=== PATIENT | male | born 2005 | race Caucasian/White ===

== ENCOUNTER 2024-11-14 20:23 | Emergency (ER) | payer MEDICAID, SELFPAY ==
--- NOTE | 2024-11-14 20:43 | MHC.EDTECH ---
BELONGINGS IN LOCKER 2
[2024-11-14 20:45] VITALS: BMI 25.7
--- NOTE | 2024-11-14 20:50 | PC.NURSE ---
Pt asked if having any pain. Pt states I dont know Pt asked if he has any allergies. Pt states I dont know Pt refusing labs Plan of care ongoing.
--- NOTE | 2024-11-14 20:58 | PC.NURSE ---
Pt refusing labs. Provider notified and aware. Plan of care ongoing.
--- NOTE | 2024-11-14 21:00 | PC.NURSE ---
Pt pacing to nurses station asking who can I speak to Pt scanning staff and the room. Pt speaking tangentially Pt tearful states I'm scared and losing my salvation Staff attempting to redirect pt Plan of care ongoing.
--- OUTSIDE RECORDS SUMMARY | 2024-11-14 21:06 | XMS_ITS | Clinical Summary ---
Author Organization [facility] Address [address] [place] [address] Phone Care Team Providers Care Literacy Coordinator Name Role Phone Physician, No Pcp Primary Care Provider Unavaila ble Allergies No known active allergies Medications No known medications Active Problems No known active problems Medical History Medical History Date Comments Asthma Social History Tobacco Use Types Packs/Day Years Used Date Smoking Tobacco: Unknown Tobacco Cessation:Counseling Given: Not Answered Sex and Gender Information Value Date Recorded Sex Assigned at Not on file Legal Sex Male 8:57 PM EST Gender Identity Not on file Sexual Orientation Not on file Obstetrics History Last Filed Vital Signs Vital Sign Reading Time Taken Comments Blood Pressure 122/69 08/01/2024 4:43 PM EST Pulse 81 08/01/2024 4:43 PM EST Temperature 37.1 C (98.8 F) 08/01/2024 4:43 PM EST Respiratory Rate 16 08/01/2024 4:43 PM EST Oxygen Saturation 100% 08/01/2024 4:43 PM EST Inhaled Oxygen Concentration - - Weight 65.8 kg (145 lb) 08/01/2024 1:30 PM EST Height 170.2 cm (5' 7 ) 08/01/2024 1:30 PM EST Body Mass Index 22.71 08/01/2024 1:30 PM EST Plan of Treatment Health Maintenance Due Date Last Done Comments Pneumococcal Vaccine: Pediatrics (0 to 5 Years) and At-Risk Patients (6 to 64 Years) (1 of 1 - PPSV23) 2010 01/29/2005, 01/05/2005, 2004, Additional history exists Meningococcal B Vaccine (1 of 2 - Standard) 2020 Annual Well Child Visit (3-21 years old) 06/22/2023 Depression Screening 06/22/2023 HIV Screening 06/22/2023 Hepatitis C Screening 06/22/2023 Social Influencers of Health Screening 06/22/2023 COVID-19 Vaccine ( season) 2024 Influenza Vaccine (Season Ended) 2025 08/19/2021, 04/12/2020, 04/03/2018, Additional history exists DTaP,Tdap,and Td Vaccines (7 - Td or Tdap) 08/29/2032 08/29/2022, 04/28/2014, 01/29/2009, Additional history exists Hepatitis B Vaccines Completed 01/05/2005, 2004, 2004 HIB Vaccines Completed 01/01/2007, 08/27, 2004 IPV Vaccines Completed 01/29/2009, 12/26, 2004, Additional history exists MMR Vaccines Completed 01/29/2009, 06/14/2005 Varicella Vaccines Completed 01/29/2009, 11/07/2005 HPV Vaccines Completed 04/03/2018, 12/22/2016 Hepatitis A Vaccines Completed 04/03/2018, 12/23/19 Meningococcal ACWY Vaccine Completed 08/19/2021, RSV Immunization Patients Under 20 months Aged Out No longer eligible based on patient's age to complete this topic Care Teams Literacy Coordinator Relationship Specialty Start Date End Date Physician, No Pcp PCP - General 08/01/24
--- NOTE | 2024-11-14 21:09 | PC.NURSE ---
Pt out of room at nurses station speaking about prayer and orthodoxy. Plan of care ongoing.
--- NOTE | 2024-11-14 21:17 | PC.NURSE ---
Pt back in room, reading his bible. Plan of care ongoing.
--- NOTE | 2024-11-14 21:20 | PC.NURSE ---
Pt back at nurses station. Pt refusing to speak with female staff. Pt speaking about anabaptist with male staff. Plan of care ongoing.
--- NOTE | 2024-11-14 21:26 | ED_ITS ---
HPI - Psych General Chief Complaint: Psychiatric Symptoms Stated Complaint: crisis hx of psychosis no si hi Time Seen by Provider: 11/14/24 21:15 Source: patient Mode of arrival: ambulatory Limitations: no limitations History of Present Illness ED Provider: HPI Narrative: Patient's history of PTSD, anxiety and psychosis started on olanzapine 5 mg since yesterday comes here as behaving psychotically reading Bible when brought in with fixed mentation talking to himself limited history Related Data Allergies Allergy/AdvReac Type Severity Reaction Status Date / Time Unable to Assess Allergy Unverified 11/14/24 20:49 Review of Systems 2 Review of Systems: Yes Unobtainable due to mental condition PMFSH Social History Social History Advance Directives: Yes Advance Directives on File: Yes Advance Directives Date on File: 11/14/24 Physical Exam 2 Vital Signs: Vital Signs: Last Vital Signs Temp 98.7 F 11/15/24 14:11 Pulse 78 11/15/24 14:11 Resp 18 11/15/24 14:11 BP 123/74 11/15/24 14:11 Pulse Ox 98 11/15/24 14:11 O2 Del Method Room Air 11/15/24 14:11 BMI result Body Mass Index 25.7 Appearance: Alert. Anxious talking to himself limited exam Eyes: PERRLA, No Nystagmus ENT: Pharynx normal. Oral Mucosa moist Neck: Normal inspection. Neck supple. CVS: Normal heart rate and rhythm. Pulses normal. Respiratory: No respiratory distress. Equal air entry bilateral, no wheezing/rales/rhonchi Abdomen: Soft and nontender. Bowel sounds are present, no mass palpable, no CVA tenderness Skin: Skin warm and dry. Normal skin color. Normal skin turgor. Extremities: No lower extremity edema. No calf tenderness psych: Patient is holding the bipolar in his hand talking to himself very anxious Neuro: Oriented X 3. No motor deficit. No sensory deficit.No cerebellar signs , cranial nerves II-XII intact Course Reevaluation(s) Reevaluation #1: Rosario Mae NP 11/15/2024 15:34 Patient was evaluated by care team, parents has been involved in planning of care as well, feel at this time that he does not meet criteria for inpatient level of care. Mother who is his guardian is advocating for discharge at this time and patient is requesting to be discharged. Plan is in place for him to follow-up with and outpatient clinic tomorrow. Given strict return precautions. All questions answered care Time: 15:32 Medications Administered Discontinued Medications Generic Name Dose Route Start Last Admin Trade Name Travis PRN Reason Stop Dose Admin Lorazepam 2 mg 11/14/24 22:30 11/14/24 22:38 Lorazepam 1 Mg Tablet PO 11/14/24 22:31 2 mg ONCE ONE Administration Olanzapine 5 mg 11/14/24 21:31 11/14/24 21:37 Olanzapine 5 Mg Tablet PO 11/14/24 21:32 5 mg ONCE ONE Administration Medical Decision Making Medical Decision Making [facility] Narrative: Patient's anxiety, PTSD psychotic disorder on Zyprexa for last 2 days details not available at this time patient comes here in features of psychosis and very anxious patient received Ativan and Zyprexa will get care team evaluation Lab Data [facility] Lab Attestation statement: I reviewed the patient's lab results. 11/14/24 22:23 11/14/24 22:23 Labs: Lab Results 11/14/24 11/14/24 Range/Units 21:35 22:23 WBC 8.3 (4.8-10.8) X10*3/uL RBC 5.06 (4.60-5.80) X10*6/uL Hgb 15.2 (14.0-18.0) g/dl Hct 44.6 (42.0-52.0) % MCV 88.1 (80.0-98.0) fL MCH 30.0 (27.0-33.0) pg MCHC 34.1 (31.0-36.0) g/dl RDW 12.0 (11.0-16.0) % Plt Count 345 (160-400) X10*3/uL MPV 10.8 (9.4-12.4) fL Immature Gran % (Auto) 0.2 (0.0-0.4) % Neut % (Auto) 72.6 (45-73) % Lymph % (Auto) 16.6 L (20-40) % [place] % (Auto) 8.2 (2-11) % Eos % (Auto) 1.3 (0-4) % Baso % (Auto) 1.1 (0-2) % Lymph # (Auto) 1.4 (1.2-4.9) X10*3/uL [place] # (Auto) 0.7 (0.1-1.2) X10*3/uL Eos # (Auto) 0.1 (0.0-0.4) X10*3/uL Baso # (Auto) 0.1 (0.0-0.2) X10*3/uL Abs Immat Gran (auto) 0.02 (0.00-0.03) X10*3/uL Absolute Neuts (auto) 6.0 (2.0-8.3) x10*3/uL Absolute Nucleated RBC 0.000 (0.0-0.012) X10*3/uL Nucleated RBC % (auto) 0.0 (0.0-0.2) /100WBC Sodium 136 (135-145) mmol/L Potassium 4.0 (3.3-5.1) mmol/L Chloride 104 (96-108) mmol/L Carbon Dioxide 25 (22-29) mmol/L Anion Gap 11 L (12-20) BUN 15 (9-16) mg/dL Creatinine 1.02 (0.5-1.4) mg/dL Estim Creat Clear Calc 92.9 Estimated GFR > 60 Random Glucose 98 (60-115) mg/dL Calcium 10.2 (8.4-10.2) mg/dL Total Bilirubin 1.0 (0.0-1.0) mg/dL AST 17 (5-37) U/L ALT 55 H (0-40) U/L Alkaline Phosphatase 60 (39-117) U/L Total Protein 8.9 H (6.5-8.0) g/dL Albumin 5.7 H (3.5-5.0) g/dL Urine Color Yellow Urine Appearance Clear Urine pH 5.5 (5.0-9.0) Ur Specific [place] 1.010 (1.005-1.025) Urine Protein Negative (Neg-Trace) mg/dL Urine Glucose (UA) Negative (Negative) mg/dL Urine Ketones Negative (Negative) mg/dL Urine Blood Negative (Negative) Urine Nitrite Negative (Negative) Ur Leukocyte Esterase Negative (Negative) Salicylates < 5.0 L (15-30) mg/dL Urine Opiates Screen Not Detected (Not Detect) Ur Buprenorphine Scrn Not Detected (Not Detect) ng/mL Ur Oxycodone Screen Not Detected (Not Detect) ng/mL Urine Methadone Screen Not Detected (Not Detect) ng/mL Urine Fentanyl Screen Not Detected (Not Detect) Ur Barbiturates Screen Not Detected (Not Detect) Ur Phencyclidine Scrn Not Detected (Not Detect) Ur Amphetamines Screen Not Detected (Not Detect) U Benzodiazepines Scrn Not Detected (Not Detect) Urine Cocaine Screen Not Detected (Not Detect) U Marijuana (THC) Screen Not Detected (Not Detect) Ethyl Alcohol < 10 mg/dL Discharge Plan Discharge Clinical Impression: Acute psychosis, Bipolar disorder Patient Disposition: Home, Self-Care Instructions: Bipolar Disorder (ED) Additional Instructions: You were evaluated in the emergency department given family concerns for your behavior. You received medication while in the emergency department. Plan is in place for you to follow-up with [facility] tomorrow outpatient in their clinic. You are experiencing any new or worsening symptoms or concerns you should return back to emergency department for evaluation, this may include but is not limited to suicidal ideations, homicidal ideations, hallucinations, violent behaviors. You were seen in our Emergency Department today for treatment of a behavioral health issue. It is important after your visit that you follow up with either your behavioral health provider or a primary care doctor within 7 days.? If you have trouble finding a therapist you can reach out to [address] [phone] The National Suicide and Crisis Lifeline can be reached 7 days a week 24 hours a day.? Call 988 to speak with someone.? Return for any worsening symptoms or concerns such as thoughts of self harm or harm to others. Please call 911 if you feel your mental health is worsening.? Print Language: Australian
[2024-11-14] MEDS: OLANZapine 5 MG TABLET PO (21:37)
--- NOTE | 2024-11-14 21:38 | PC.NURSE ---
Pt requesting meds to help with sleep. Provider notified and aware. Pt medicated per mar. Pt hesitant to take meds but eventually took meds. Pt requested and given water x3. Pt tearful states I'm scared to Plan of care ongoing.
[2024-11-14 21:44] LABS: Appearance Urine Clear; Color Urine Yellow; Glucose Urine UA Negative (Negative); Leukocyte Esterase Urine Negative (Negative); Nitrite Urine Negative (Negative); PH 5.5 (5.0-9.0); Urine Blood Negative (Negative); Urine Ketones Negative (Negative); Urine Protein Negative (Neg-Trace)
[2024-11-14 21:58] LABS: Amphetamine Screen Urine Not Detected (Not Detect); Barbiturates, Urine Not Detected (Not Detect); Benzodiazepines Screen Urine Not Detected (Not Detect); Buprenorphine Scr Not Detected (Not Detect); Cannabinoid Screen Urine Not Detected (Not Detect); Cocaine Screen Urine Not Detected (Not Detect); Fentanyl, urine Not Detected (Not Detect); Methadone Screen, Urine Not Detected (Not Detect); Opiate Screen Urine Not Detected (Not Detect); Oxycodone Screen Urine Not Detected (Not Detect); Phencyclidine Screen Urine Not Detected (Not Detect)
--- NOTE | 2024-11-14 22:13 | PC.NURSE ---
Pts mother called and transferred to speak to pt. Plan of care ongoing.
--- NOTE | 2024-11-14 22:22 | PC.NURSE ---
Labs obtained. Pt tearful, states Im scared. I dont want this. What does this mean? I want to go to [facility], that's where my dad is Pt redirected back into room by male staff. Care team with patient. Plan of care ongoing.
[2024-11-14 22:27] LABS: MANUAL DIFF FLAG NO
[2024-11-14 22:29] LABS: Basophils Absolute Auto 0.1 X10*3/uL (0.0-0.2); Basophils Percent Auto 1.1 % (0-2); Eosinophils Absolute Auto 0.1 X10*3/uL (0.0-0.4); Eosinophils Percent Auto 1.3 % (0-4); Hematocrit 44.6 % (42.0-52.0); Hemoglobin 15.2 g/dl (14.0-18.0); Imm Gran Abs Auto 0.02 X10*3/uL (0.00-0.03); Imm Gran Pct Auto 0.2 % (0.0-0.4); Lymphocytes Absolute Auto 1.4 X10*3/uL (1.2-4.9); Lymphocytes Percent Auto 16.6 % (20-40); Mean Corpuscular HGB Conc 34.1 g/dl (31.0-36.0); Mean Corpuscular Volume 88.1 fL (80.0-98.0); Mean Platelet Volume 10.8 fL (9.4-12.4); Monocytes Absolute Auto 0.7 X10*3/uL (0.1-1.2); Monocytes Percent Auto 8.2 % (2-11); Neutrophils Percent Auto 72.6 % (45-73); Platelet Count 345 X10*3/uL (160-400); Red Blood Count 5.06 X10*6/uL (4.60-5.80); White Blood Count 8.3 X10*3/uL (4.8-10.8)
[2024-11-14] MEDS: LORazepam 1 MG TABLET 2 MG PO (22:38)
--- NOTE | 2024-11-14 22:45 | PC.NURSE ---
Pt yelling on the phone to mom stating I dont want to be here. I feel trapped Pt hung up phone, sitting on floor next to room. Pt tearful declining to take meds stating I dont want that blood. I just want to go to heaven with my dad and god. Who's with me and who's against me Pt redirected and agreeable to taking meds. Plan of care ongoing.
[2024-11-14 22:48] LABS: Alanine Aminotransferase 55 U/L (0-40); Albumin Level 5.7 g/dL (3.5-5.0); Alkaline Phosphatase 60 U/L (39-117); Anion Gap 11 (12-20); Aspartate Amino Transferase 17 U/L (5-37); Blood Urea Nitrogen 15 mg/dL (9-16); Calcium 10.2 mg/dL (8.4-10.2); Carbon Dioxide 25 mmol/L (22-29); Chloride 104 mmol/L (96-108); Creatinine Clr Calc Pharmacy 92.9; Estimated Glomerular Filt Rate > 60; Ethanol < 10 mg/dL; Glucose Random 98 mg/dL (60-115); Sodium 136 mmol/L (135-145); Total Protein 8.9 g/dL (6.5-8.0)
[2024-11-14 22:50] LABS: Salicylate < 5.0 mg/dL (15-30)
--- NOTE | 2024-11-14 22:59 | PC.NURSE ---
Pt back at the nurses station. Pt stating no one can take my salvation Pt redirected into room Plan of care ongoing.
--- NOTE | 2024-11-14 23:03 | PC.NURSE ---
care team with patient Plan of care ongoing.
--- NOTE | 2024-11-15 07:34 | PC.NURSE ---
pt sleeping in bed, respirations even and regular, skin color normal for ethnicity, pt in nad at this time.
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
[2024-11-15 14:11] VITALS: BP 123/74; PULSE 78; RESP 18; TEMP 37.1; O2SAT 98
--- NOTE | 2024-11-15 15:40 | PC.NURSE ---
Addendum entered by Marla Schreiber RN 11/15/24 15:46: pt escorted out the department accompanied with his mother by GINNY Whitehead Original Note: pt refusing discharge vital sign assessment, mother present at the bedside, pt provided with discharge instructions, d/c paperwork and all belongings. Pt refused to sign discharge paperwork. Pt sts verbal understanding of discharge instructions. Pt ambulatory independently w/ steady gait/balance, speaking clearly in full sentences. He is in NAD at this time.
[2024-11-15 15:43] VITALS: RESP 16
--- NOTE | 2024-11-16 13:06 | MHC.CARE ---
Pt has been referred to [facility] for additional supports.
--- NOTE | 2024-11-16 13:24 | MHC.CARE ---
Pt has been referred to [facility] for a follow up
== END 2024-11-15 15:56 | disposition home or self-care (01) ==
PROVIDERS: Emergency Provider Internal Medicine
DX: F31.89 Other bipolar disorder (principal); Z51.81 Encounter for therapeutic drug level monitoring; F41.9 Anxiety disorder, unspecified; Z79.899 Other long term (current) drug therapy
CPT/HCPCS: 36415; 80053; 80179; 80307; 81003; 85025; 99283; 99285; S9485

== ENCOUNTER 2024-11-15 22:52 | Emergency (ER) | payer OTHER, SELFPAY ==
[2024-11-15 23:05] VITALS: BP 158/80; PULSE 108; O2SAT 98
[2024-11-15 23:07] VITALS: BMI 25.4
--- OUTSIDE RECORDS SUMMARY | 2024-11-15 23:22 | XMS_ITS | Clinical Summary ---
Author Organization [facility] Address [address] [place] [address] Phone Care Team Providers Care Drop Wire Operator Name Role Phone Physician, No Pcp Primary [...] age to complete this topic Care Teams Drop Wire Operator Relationship Specialty Start Date End Date Physician, No Pcp PCP - General 08/01/24
[2024-11-15] MEDS: LORazepam 1 MG TABLET 2 MG PO (23:44)
[2024-11-15] MEDS: OLANZapine 10 MG TABLET PO (23:44)
--- NOTE | 2024-11-16 00:49 | PC.NURSE ---
Spoke with patient's mother with hospital director of medical staff services and discussed with her that visiting hours are 8am to 8pm. Mother understood and was going to come back later. Pt noted to be sleeping in room.
--- NOTE | 2024-11-16 01:03 | ED.PSYCH ---
HPI - Psych General Chief Complaint: Psychiatric Symptoms Stated Complaint: ams Time Seen by Provider: 11/15/24 22:59 Source: patient Mode of arrival: EMS Limitations: no limitations History of Present Illness ED Provider: HPI Narrative: Patient's anxiety PTSD been feeling more anxious was seen here yesterday and discharged home comes back within 7 hours of discharge saying that his mind is not stable he feels the need to sleep and is thinking too much, PD on the scene states that he was in the corner retching bipolar talking to himself little agitated with increased anxiety denies any SI or HI patient is on olanzapine for last 3 days no family history of schizophrenia Related Data Home Medications ?Medication ?Instructions ?Recorded ?Confirmed No Known Home Meds 11/16/24 11/16/24 Allergies Allergy/AdvReac Type Severity Reaction Status Date / Time Unable to Assess Allergy Verified 11/15/24 23:11 Review of Systems Review of Systems: Yes all other systems are reviewed and are negative [facility] Social History Social History Smoked in Last 30 Days: No Use of substances other than those prescribed or required for medical reasons: Yes Advance Directives: Yes Advance Directives on File: Yes Advance Directives Date on File: 11/14/24 Physical Exam Vital Signs: Vital Signs: Last Vital Signs Temp 97.6 F 11/16/24 08:27 Pulse 110 H 11/16/24 08:27 Resp 20 11/16/24 08:27 BP 116/76 11/16/24 08:27 Pulse Ox 96 11/16/24 08:27 O2 Del Method Room Air 11/16/24 08:27 BMI result Body Mass Index 25.4 Appearance: Alert. Oriented X3. No acute distress. Eyes: PERRLA, No Nystagmus ENT: Pharynx normal. Oral Mucosa moist Neck: Normal inspection. Neck supple. CVS: Normal heart rate and rhythm. Pulses normal. Respiratory: No respiratory distress. Equal air entry bilateral, no wheezing/rales/rhonchi Abdomen: Soft and nontender. Bowel sounds are present, no mass palpable, no CVA tenderness Skin: Skin warm and dry. Normal skin color. Normal skin turgor. Extremities: No lower extremity edema. No calf tenderness psych: Anxious with fixed thoughts patient's keep changing the topic denies any SI or HI denies any hallucination delusion Neuro: Oriented X 3. No motor deficit. No sensory deficit.No cerebellar signs , cranial nerves II-XII intact Course Reevaluation(s) Reevaluation #1: Time: 11:16 Date: 11/16/24 Provider: Tomas Aguilera DO Physician observation ended at ___[id number]__. Patient has been cleared for discharge by the CARE team. Will follow up as an outpatient. Medications Administered Generic Name Dose Route Start Last Admin Trade Name Freq PRN Reason Stop Dose Admin Lorazepam 2 mg 11/15/24 23:09 11/15/24 23:44 Lorazepam 1 Mg Tablet PO 2 mg ONCE PRN Administration Agitation, anxiety Olanzapine 10 mg 11/15/24 23:11/15/24 23:44 Olanzapine 10 Mg Tablet PO 10 mg ONCE PRN Administration Agitation, anxiety Medical Decision Making Medical Decision Making [facility] Narrative: Patient with increased anxiety psychotic features on olanzapine coming back again is not feeling better will consult care team for re-evaluation Discharge Plan Discharge Clinical Impression: Acute psychosis, Bipolar disorder Patient Disposition: Home, Self-Care Additional Instructions: You were seen in our Emergency Department today for treatment of a behavioral health issue. It is important after your visit that you follow up with either your behavioral health provider or a primary care doctor within 7 days.? If you have trouble finding a therapist you can reach out to [address] [phone] The National Suicide and Crisis Lifeline can be reached 7 days a week 24 hours a day.? Call 988 to speak with someone.? Return for any worsening symptoms or concerns such as thoughts of self harm or harm to others. Please call 911 if you feel your mental health is worsening.? Prescriptions: No Action No Known Home Meds Interventions: [place]-Suicide Risk Severity Scale Last Done: 11/15/24 23:49 Print Language: Frisian
[2024-11-16 07:16] VITALS: RESP 16
--- NOTE | 2024-11-16 07:19 | PC.NURSE ---
Assumed care of patient at 0645, patient appears to be in no apparent distress, sleeping, respirations even and unlabored. Continue plan of care for CARE team luis m
[2024-11-16 08:27] VITALS: BP 116/76; PULSE 110; RESP 20; TEMP 36.4; O2SAT 96
--- NOTE | 2024-11-16 08:49 | PC.NURSE ---
Patient refusing labs and urine sample at this time
[2024-11-16 11:30] VITALS: BP 116/76; PULSE 110; RESP 20; TEMP 36.4; O2SAT 96
--- NOTE | 2024-11-18 12:40 | MHC.CARE ---
[facility] and PHP referral complete
== END 2024-11-16 11:45 | disposition home or self-care (01) ==
PROVIDERS: Emergency Provider Internal Medicine; PCP Internal Medicine
DX: F31.5 Bipolar disorder, current episode depressed, severe, with psychotic features (principal); R45.1 Restlessness and agitation; F41.9 Anxiety disorder, unspecified; F43.10 Post-traumatic stress disorder, unspecified; Z79.899 Other long term (current) drug therapy
CPT/HCPCS: 99284; S9485

== ENCOUNTER 2025-02-16 13:05 | Inpatient (IN) | payer SELFPAY ==
[2025-02-16 13:20] VITALS: BP 146/95; BP 170/110; PULSE 108; PULSE 86; RESP 18; TEMP 36.9; O2SAT 98; O2SAT 99; BMI 25.0
--- NOTE | 2025-02-16 13:32 | ED_ITS ---
HPI - Psych General Chief Complaint: Psychiatric Symptoms Stated Complaint: paranoid,manic, delusion Time Seen by Provider: 02/16/25 13:17 Source: patient, family ( Mother) and EMS Mode of arrival: EMS Limitations: no limitations History of Present Illness ED Provider: DR. Bernal HPI Narrative: 19-year-old male history of to ED visit for anxiety brought in by ambulance under section 12 for evaluation of acute psychosis patient in the emergency department does not want to provide history keep saying I need something for anxiety to come me down, patient is not engaging in providing the history, history was obtained from mother who stated that patient with missed for the past 3 days and patient was found a [place] after taking a bus randomly, for the last 5 days it has been acting strange, decreased p.o. intake, patient has been acting erratic, with a short temper and impulsiveness. Patient was admitted to [facility] in the psych unit was diagnosed with schizoaffective / bipolar disorder. Patient currently is not taking no medication. Related Data Home Medications ?Medication ?Instructions ?Recorded ?Confirmed olanzapine 5 mg tablet 5 mg PO DAILY 02/16/2502/16 Allergies Allergy/AdvReac Type Severity Reaction Status Date / Time No Known Allergies Allergy Verified 02/16/25 16:22 Review of Systems 2 Review of Systems: Yes Unobtainable due to mental condition PMFSH Social History Social History Advance Directives: Yes Advance Directives on File: Yes Advance Directives Date on File: 11/14/24 Do you have a plan to hurt others: No Plan Physical Exam 2 Vital Signs: Vital Signs: Last Vital Signs Temp 98.5 F 02/16/25 13:20 Pulse 86 02/16/25 13:20 Resp 16 02/17/25 06:11 BP 146/95 H 02/16/25 13:20 Pulse Ox 99 02/16/25 13:20 O2 Del Method Room Air 02/16/25 13:20 BMI result Body Mass Index 25.0 Vital signs have been reviewed and appear to be correct. Blood pressure elevated. Heart rate normal. Respiratory rate normal. Temperature normal. Oxygen saturation normal. Appearance: Alert. Oriented X3. No acute distress. Head: Normal external exam. Normocephalic. Atraumatic. No Sam signs noted. No raccoon eyes noted Eyes: PERRLA. EOMI. Conjunctiva and sclera normal. Eyelids normal. ENT: TM's Normal. Pharynx normal. Uvula midline. Moist mucous membranes. No trismus noted. No drooling noted. No muffled voice noted. Neck: Normal inspection. Neck supple. FROM. No adenopathy. Thyroid Normal. No meningeal signs. No neck mass noted. CVS: Normal heart rate and rhythm. Heart sound normal. No murmurs noted. Pulses normal throughout. Respiratory: No respiratory distress. Painless inspiration. Breath sounds normal. No wheezes/rales/rhonchi noted. Chest nontender. No accessory muscle usage noted or decreased air movement noted. Abdomen: Soft and nontender. Bowel sounds normal in all 4 quadrants. No distention noted. No organomegaly noted. No visible injury noted. Back: No CVA tenderness. Full range of motion noted. Skin: Skin warm and dry. Normal skin color. Normal skin turgor. No rashes/lesions/lacerations noted. Extremities: No lower extremity edema. Extremities exhibit normal range of motion. Extremities nontender. Neuro: Mental status: Normal attention, orientation, memory, and affect. Cranial nerves: Pupils are equal, round and reactive to light, EOMI, visual langford are fall, face is symmetric, facial sensations are normal. Motor examination normal muscle tone, strength to 4 extremities. DTR are +2, planter's are flexor. Sensory exam; normal coordination, no ataxia, gait stable. Cerebellar exam: Bhlsoc-az-unti and nfxa-ia-[id number] is normal. Extrapyramidal system: No tremors, no rigidity with normal facial expressions. Pronator drift not present. Patient Orientation: Person, Place, Time and Situation, okay hygiene and grooming. Fair eye contact, attentive, no tics or tremors. Level of Consciousness: Awake, Appropriate and Alert Patient Behavior: Appropriate, Guarded, Cooperative and Anxious Mood Description: Constricted, Blunted and Apprehensive Affect Description: Constricted, Blunted and Apprehensive Patient Cognition Impaired: No Ability to Follow Directions: Excellent Speech Pattern: Clear, Appropriate and Spontaneous Speech, nonpressured, spontaneous with regular rate and rhythm, normal volume and prosody. No dysarthria. Memory Description: Intact, Immediate Intact and Short Term Intact Hallucinations: None Delusions: Not Present Thought Process: Intact Thought Content: positive for Intact, denies Suicidal Ideation and denies Homicidal Ideation. Depressive Symptoms: Not present. Judgement and Insight: Limited but adequate. Course Reevaluation(s) Reevaluation #1: 19-year-old male appeared to be an acute psychosis, will start medical clearance, start on physician observation. mild elevation of total bilirubin but patient has no jaundice, no symptoms, no nausea, no vomiting, no abdominal pain. await for UA. Time: 13:43 Reevaluation #2: Time: 06:03 Date: 02/17/25 Provider: Abida Monroe, DO Patient in physician observation for psychiatric evaluation.? No acute events reported overnight. No current complaints. VS stable.? Patient is in bed search status. Will continue to monitor. Reevaluation #3: Time: 13:06 Date: 02/17/25 Provider: Abida Monroe DO Physician observation ended at 107pm. Patient to be admitted as inpatient to psychiatry Medications Administered Generic Name Dose Route Start Last Admin Trade Name Freq PRN Reason Stop Dose Admin Olanzapine 5 mg 02/17/25 09:00 02/17/25 11:32 Olanzapine 5 Mg Tablet PO Not Given DAILY LEATHA Discontinued Medications Generic Name Dose Route Start Last Admin Trade Name Freq PRN Reason Stop Dose Admin Diphenhydramine HCl 50 mg 02/16/25 22:32 02/17/25 02:40 Diphenhydramine Hcl 25 Mg Capsule PO 02/16/25 22:33 Not Given ONCE ONE Lorazepam 2 mg 02/16/25 22:32 02/17/25 02:40 Lorazepam 1 Mg Tablet PO 02/16/25 22:33 Not Given ONCE ONE Medical Decision Making Differential Diagnosis Differential Diagnoses: The differential diagnosis associated with the presentation includes ( Medical clearance, acute psychosis, SI, HI,) Admission/Observation Consideration of admission/observation: Escalation of care including admission/observation considered Lab Data MDM Lab Attestation statement: I reviewed the patient's lab results. 02/16/25 13:49 02/16/25 13:49 Labs: Lab Results 02/16/25 Range/Units 13:49 WBC 9.8 (4.8-10.8) X10*3/uL RBC 4.71 (4.60-5.80) X10*6/uL Hgb 14.3 (14.0-18.0) g/dl Hct 40.1 L (42.0-52.0) % MCV 85.1 (80.0-98.0) fL MCH 30.4 (27.0-33.0) pg MCHC 35.7 (31.0-36.0) g/dl RDW 11.3 (11.0-16.0) % Plt Count 282 (160-400) X10*3/uL MPV 10.6 (9.4-12.4) fL Immature Gran % (Auto) 0.3 (0.0-0.4) % Neut % (Auto) 79.3 H (45-73) % Lymph % (Auto) 11.2 L (20-40) % [place] % (Auto) 8.1 (2-11) % Eos % (Auto) 0.7 (0-4) % Baso % (Auto) 0.4 (0-2) % Lymph # (Auto) 1.1 L (1.2-4.9) X10*3/uL [place] # (Auto) 0.8 (0.1-1.2) X10*3/uL Eos # (Auto) 0.1 (0.0-0.4) X10*3/uL Baso # (Auto) 0.0 (0.0-0.2) X10*3/uL Abs Immat Gran (auto) 0.03 (0.00-0.03) X10*3/uL Absolute Neuts (auto) 7.8 (2.0-8.3) x10*3/uL Absolute Nucleated RBC 0.000 (0.0-0.012) X10*3/uL Nucleated RBC % (auto) 0.0 (0.0-0.2) /100WBC Sodium 138 (135-145) mmol/L Potassium 4.2 (3.3-5.1) mmol/L Chloride 105 (96-108) mmol/L Carbon Dioxide 25 (22-29) mmol/L Anion Gap 12 (12-20) BUN 17 H (9-16) mg/dL Creatinine 1.00 (0.5-1.4) mg/dL Estim Creat Clear Calc 102.5 Estimated GFR > 60 Random Glucose 99 (60-115) mg/dL Calcium 10.2 (8.4-10.2) mg/dL Magnesium 2.1 (1.6-2.6) mg/dL Total Bilirubin 1.7 H (0.0-1.0) mg/dL AST 42 H (5-37) U/L ALT 27 (0-40) U/L Alkaline Phosphatase 60 (39-117) U/L Total Protein 8.3 H (6.5-8.0) g/dL Albumin 5.6 H (3.5-5.0) g/dL Salicylates < 5.0 L (15-30) mg/dL Acetaminophen < 3 (<30) mcg/mL Ethyl Alcohol 10 mg/dL Discharge Plan Discharge Clinical Impression: Acute psychosis Patient Disposition: Admitted As Inpatient Interventions: [place]-Suicide Risk Severity Scale Last Done: 02/16/25 14:36 Print Language: Argentine
[2025-02-16 13:52] LABS: MANUAL DIFF FLAG NO
[2025-02-16 13:54] LABS: Hematocrit 40.1 % (42.0-52.0); Hemoglobin 14.3 g/dl (14.0-18.0); Imm Gran Abs Auto 0.03 X10*3/uL (0.00-0.03); Imm Gran Pct Auto 0.3 % (0.0-0.4); Lymphocytes Absolute Auto 1.1 X10*3/uL (1.2-4.9); Mean Corpuscular HGB Conc 35.7 g/dl (31.0-36.0); Mean Corpuscular Hemoglobin 30.4 pg (27.0-33.0); Mean Corpuscular Volume 85.1 fL (80.0-98.0); NRBC Abs Auto 0.000 X10*3/uL (0.0-0.012); NRBC Pct Auto 0.0 /100WBC (0.0-0.2); Platelet Count 282 X10*3/uL (160-400); Red Blood Count 4.71 X10*6/uL (4.60-5.80); White Blood Count 9.8 X10*3/uL (4.8-10.8)
[2025-02-16 14:00] VITALS: RESP 18
[2025-02-16 14:08] LABS: Alanine Aminotransferase 27 U/L (0-40); Albumin Level 5.6 g/dL (3.5-5.0); Alkaline Phosphatase 60 U/L (39-117); Anion Gap 12 (12-20); Aspartate Amino Transferase 42 U/L (5-37); Blood Urea Nitrogen 17 mg/dL (9-16); Calcium 10.2 mg/dL (8.4-10.2); Carbon Dioxide 25 mmol/L (22-29); Chloride 105 mmol/L (96-108); Creatinine Clr Calc Pharmacy 102.5; Estimated Glomerular Filt Rate > 60; Magnesium 2.1 mg/dL (1.6-2.6); Potassium 4.2 mmol/L (3.3-5.1); Sodium 138 mmol/L (135-145); Total Protein 8.3 g/dL (6.5-8.0)
[2025-02-16 14:12] LABS: Acetaminophen LAB < 3 mcg/mL (<30); Salicylate < 5.0 mg/dL (15-30)
--- NOTE | 2025-02-16 15:11 | PC.NURSE ---
Pt is restless and paranoid of staff. His mother is present and attempts to assist with getting him changed and labs obtained. Pt is unable to answer questions appropriately and when told he needs to ask before showering, he goes and takes a shower 20 min. later not telling anyone. Pt had no soap, towels or a change of clothes.
--- NOTE | 2025-02-16 20:15 | PC.NURSE ---
pt trying to use the phone, unable to dial correctly. attempted to help with call, pt got agitated. went back to room.
--- NOTE | 2025-02-16 22:57 | PC.NURSE ---
pt requesting medication to help him sleep. MD aware. orders placed. pt took a shower. then was very hesitant and anxious about taking meds. pt refused at this time. pt overwhelmed when asked simple questions, do you want juice or water . will try again shortly.
--- NOTE | 2025-02-16 22:58 | MHC.EDTECH ---
pt has taken 4 showers since t/w has arrived on POD. pt re directable to an extent. agitated when approached with too many questions. rn aware.
--- NOTE | 2025-02-17 00:04 | PC.NURSE ---
pt asked to talk, this RN listened to pt talk for 30 minutes, very nonsensical speech. talking in circles about the bible and the lord. refusing to wear hospital bracelet, still refusing medications. becoming more manic
--- NOTE | 2025-02-17 01:37 | PC.NURSE ---
pt appears to be resting at this time
[2025-02-17 06:11] VITALS: RESP 16
--- NOTE | 2025-02-17 06:39 | PC.NURSE ---
pt awake at this time
--- NOTE | 2025-02-17 07:10 | PC.NURSE ---
Assumed care, report, received. Pt is awake and currently kneeling at his bedside praying. he is awaiting breakfast/
--- NOTE | 2025-02-17 09:16 | PC.NURSE ---
Attempt to obtain EKG X2 Pt continues to refuse and is very paranoid and religiously preoccupied.
--- NOTE | 2025-02-17 09:35 | PHA.MEDREC ---
Addendum entered by Lang Georges PharmD 02/17/25 09:40: reviewed Original Note: Pharmacy Consult ? Medication Reconciliation Pharmacy has reviewed the medication reconciliation done by nursing. Claims match med list.
--- NOTE | 2025-02-17 10:08 | PC.NURSE ---
30 min attempt made to get patient to take his Zyprexia, Pt is very paranoid, he is unable to tell me why he is here and what he thinks is happening.
--- NOTE | 2025-02-17 12:53 | PC.NURSE ---
Pts mother arrives for a visit, he remains in his room and gets very angry after 15 min, he begins yelling in the room, this food writer checks in and sets guidelines to his mother. 10 min later his mother is asked to leave due to him getting more upset and he began having impulsive physical behavior, nothing aggressive.
[2025-02-17 15:29] VITALS: BP 146/88; PULSE 64; RESP 16; O2SAT 98
--- NOTE | 2025-02-17 18:58 | PC.ADMIT ---
Addendum entered by Anita Angel RN 02/17/25 20:01: Chiquita's mom and brother called and due to not having any MICAELA signed, tw just listened. Per them, they are his HCP, they will have the court papers tomorrow. They are pursuing guardianship as he is cognitively impaired. We are the ones who take care of him. We dont want him diagnosed with something he cant ever get rid of. Mom states she is a psychology nurse [place] . They state his medications arent right. We will get the records from [facility]. This nurse called [facility] pharmacy but he is not a patient there. Mom is coming for a visit again tomorrow at 1000. Addendum entered by Anita Angel RN 02/17/25 18:59: He refused vitals, height and weight. Original Note: Chas Angel arrived via wheelchair from [facility] [place]. He is alert, awake and apprehensive. He required much support and encouragement to walk to his room with tw. He appears stated age, he is malodorous and wearing hospital johnnies. He was very resistant to skin/safety check. ?I don't want anyone touching me, at all.? He very quickly changed into a new set of clothes with minimal visibility permitted. He was evaluated in the community by N for decompensation, not sleeping, and taking off to [place] and missing for 2 days. He had an IPLOC at [facility] in September 2024. He was discharged on medications but has long since stopped taking them. He appears very internally preoccupied but cannot answer any questions directly, not even ?how do you say your name?, or ?do you want food or drink??. He is near constantly looking in his personal bible, running his finger along the page as if he is searching for the exact phrase that applies. But it is unclear if he is actually reading the words. He is tangential and having flight of ideas. ?I don't want things to get confused.?, ?God told me things, I have to follow the one true God and the one true Word?, ?The evil one gets in the way?. He is restless, ?I just need to talk to my mom, she said she was coming. I don't mean it like that, she looks after me?, ?I had bad things happen to me but I don't want to say. He will not answer any safety questions. Per crisis report, he doesn't have providers, doesn't drink, smoke or use any illicit substances. He is refusing everything under the guise of ?I don't want anyone touching me. giving me anything or bothering me in any way.? These statements were not said sequentially. He is on a 12b and 15 minute safety checks. His mom came for a visit, she was clear to say that both she and her other son Cruz are Chiquita?s health care proxy. We do not have any paperwork to reflect this. This nurse provided bottled water and fruit even though he didn't ask for anything.
--- NOTE | 2025-02-18 08:28 | HO.PM.IMCN ---
History of Present Illness Data of Consult Service Date: 02/18/25 Primary Care Provider: DO TAJ Montaño Reason for consult: Medical management 19-year-old male with a past medical history of unspecified intellectual disability, anxiety brought to the ED via EMS for acute psychosis. Per reports patient was missing for 3 days and was found in [place] after randomly taking a bus there, acting erratic with impulsiveness and short temper. Patient was admitted to [facility] in September 2024 and transferred to [facility]. In [place] he was started on Zyprexa 5 mg and was stabilized. He reportedly ran out of his medication. In the ED his workup revealed no leukocytosis no anemia. Mild elevation in his bilirubin, no evidence of kidney injury. Urinalysis not obtained for toxicology or infection. On exam he appears fearful, paranoid, does not want to answer any questions or let this creative writer examine him. Review of Systems Review of Systems: Declines to answer any questions PMFSH Social History Household Members: Family Housing: Apartment Patient Tobacco Use Status: Never used Tobacco Currently Displaying Signs/Symptoms of Drug Intoxication Withdrawal: No Advance Directives: Yes Advance Directives on File: Yes Advance Directives Date on File: 11/14/24 Do you have thoughts of harming others: None Do you have a plan to hurt others: No Plan Recently lost weight without trying: Yes How much weight loss: Unsure Poor oral hygiene: No service: No Sexual orientation: Straight/Heterosexual Meds Allergies Allergy/AdvReac Type Severity Reaction Status Date / Time No Known Allergies Allergy Verified 02/16/25 16:22 Active Medications: Current Medications Acetaminophen (Acetaminophen 325 Mg Tablet) 650 mg PO Q6H PRN PRN Reason: Headache/Pain, Scale 1-10 Al Hydroxide/Mg Hydroxide (Magnesium Hydrox/Alum Hydrox 30 Ml Oral.Susp) 30 ml PO Q6H PRN PRN Reason: Heartburn/Nausea Hydroxyzine HCl (Hydroxyzine Hcl 25 Mg Tablet) 25 mg PO Q6H PRN PRN Reason: mild anxiety Lorazepam (Lorazepam 1 Mg Tablet) 1 mg PO Q6H PRN PRN Reason: severe anxiety Magnesium Hydroxide (Milk Of Magnesia 30 Ml Oral.Susp) 30 ml PO DAILY PRN PRN Reason: Constipation Nicotine (Nicotine 21 Mg Patch.Td24) 21 mg TRANSDERMA DAILY PRN PRN Reason: smoking cessation Nicotine Polacrilex (Nicotine Polacrilex 2 Mg Gum) 4 mg BUCCAL Q2H PRN PRN Reason: Nicotine Cravings Olanzapine (Olanzapine 5 Mg Tablet) 5 mg PO DAILY LEATHA Last Admin: 02/17/25 11:32 Dose: Not Given Olanzapine (Olanzapine 5 Mg Tablet) 5 mg PO TID PRN PRN Reason: agitation Trazodone HCl (Trazodone Hcl 50 Mg Tablet) 50 mg PO BEDTIME MRX1 PRN PRN Reason: Insomnia Home Medications ?Medication ?Instructions ?Recorded ?Confirmed ?Last Taken ?Type olanzapine 5 mg tablet 5 mg PO DAILY 02/16/25 02/16/25 Unknown History Physical Exam Vital Signs and Narrative: Vital Signs: Last Vital Signs Temp 98.5 F 02/16/25 13:20 Pulse 64 02/17/25 15:29 Resp 16 02/17/25 15:29 BP 146/88 H 02/17/25 15:29 Pulse Ox 98 02/17/25 15:29 O2 Del Method Room Air 02/17/25 15:29 BMI result Body Mass Index 25.0 CONST: Alert and guarded, in NAD. HEENT: Normocephalic, atraumatic, MMM RESP: RRR even and regular HEART: Declined GI: Declined :Deferred SKIN: Warm dry and intact, no visible lesions or rashes NEURO: Ambulating with steady gait, pacing. Speech clear PSYCH: Guarded, appears fearful Results Labs 02/16/25 13:49 02/16/25 13:49 Assessment and Plan (1) Acute psychosis: Status: Acute Plan 19-year-old male with a past medical history of unspecified intellectual disorder and anxiety presented to the ED with psychosis. Patient was recently discharged from [place] and has been off of his medications resulting in decompensation. Psychosis/intellectual disorder-unspecified/anxiety Patient admitted to inpatient psych for further care and treatment He was admitted to [facility] for a psychotic break in September [address] head and brain without contrast that demonstrated no acute intracranial abnormalities at that time He declined a physical evaluation Thank you for allowing me to participate in the care of this patient. Will follow as needed, please notify medical provider with any changes in condition or concerns.
[2025-02-18 09:08] VITALS: BP 129/73; TEMP 36.3; O2SAT 99
--- NOTE | 2025-02-18 09:38 | HO.PSYADMNOT ---
HPI Date of Service: 02/18/25 Chief Complaint: psychiatric confusion Sources of Information: patient interviewed, chart reviewed and crisis/core team assessment reviewed HPI Subjective Notes: Dickinson Warning, Conditional Voluntary and 3 Day Narrative: Pt seen at 10:50am on 02/18/25; also met with mother Leesa and pt's older brother Cruz 2021 unconscious Boxing intellectual disability and hx of trauma disorganized, difficult to make a logical sentence...paranoid...you are talking about me.... at Baseline, he has delays latency, processing disorder, and communication but able to be organized, logical and linear in sentences, independent, attends to ADL's, has normal conversation....no church preoccupied,, not paranoid, no agitation. He does need help with being coached on handling his emotions September 2024 Pt was getting very anxious, crying non-stop...could not be calmed down; went to [facility], crying in the bathroom (similar to now)...could not make sense...was admitted [place] and started Zyprexa 5mg at bedtime and very quickly he returned to his regluar self. He has been this med for 1.5 months..but no insunacne so ran out of meds and slowly decompensated. This past week he eloped, increasingly dysregulated, not talking, isolate in his room, disorganized in speech...not sleeping! no SI/HI not but when sleeping no symptoms when ran out of meds, symptoms came back... yesterday went to [facility] for extra meds but he got [facility] refused medical exam Chiquita's mom and brother called and due to not having any MICAELA signed, tw just listened. Per them, they are his HCP, they will have the court papers tomorrow. They are pursuing guardianship as he is cognitively impaired. We are the ones who take care of him. We dont want him diagnosed with something he cant ever get rid of. Mom states she is a psychology nurse in [place] . They state his medications arent right. We will get the records from [facility]. This nurse called [facility] pharmacy but he is not a patient there. Mom is coming for a visit again tomorrow at 1000. Addendum entered by Anita Angel RN 02/17/25 18:59: He refused vitals, height and weight. Original Note: Chas Angel arrived via wheelchair from [facility] pod. He is alert, awake and apprehensive. He required much support and encouragement to walk to his room with tw. He appears stated age, he is malodorous and wearing hospital johnnies. He was very resistant to skin/safety check. ?I don't want anyone touching me, at all.? He very quickly changed into a new set of clothes with minimal visibility permitted. He was evaluated in the community by [facility] for decompensation, not sleeping, and taking off to [place] and missing for 2 days. He had an IPLOC at [place] in September 2024. He was discharged on medications but has long since stopped taking them. He appears very internally preoccupied but cannot answer any questions directly, not even ?how do you say your name?, or ?do you want food or drink??. He is near constantly looking in his personal bible, running his finger along the page as if he is searching for the exact phrase that applies. But it is unclear if he is actually reading the words. He is tangential and having flight of ideas. ?I don't want things to get confused.?, ?God told me things, I have to follow the one true God and the one true Word?, ?The evil one gets in the way?. He is restless, ?I just need to talk to my mom, she said she was coming. I don't mean it like that, she looks after me?, ?I had bad things happen to me but I don't want to say. He will not answer any safety questions. Per crisis report, he doesn't have providers, doesn't drink, smoke or use any illicit substances. He is refusing everything under the guise of ?I don't want anyone touching me. giving me anything or bothering me in any way.? These statements were not said sequentially. He is on a 12b and 15 minute safety checks. His mom came for a visit, she was clear to say that both she and her other son Cruz are Chiquita?s health care proxy. We do not have any paperwork to reflect this. This nurse provided bottled water and fruit even though he didn't ask for anything. Past Psychiatric History: Psychiatrically admitted September 2024 at [place] Had Head CT at [facility] just prior Medical Evaluation Reviewed: Hospitalist Willa Pending [facility] Medical History (Updated 02/18/25 @ 12:03 by Steve Ramirez MD) Cognitive disorder Bipolar I disorder Diagnostics Vital Signs (24Hr): Vital Signs - 24 hr 02/17/25 15:29 02/18/25 09:08 Temperature 97.3 F Pulse Rate 64 Respiratory Rate 16 Blood Pressure 146/88 H 129/73 Pulse Oximetry 98 99 Oxygen Delivery Method Room Air Room Air BMI result Body Mass Index 25.0 Labs 02/16/25 13:49 02/16/25 13:49 Labs: Laboratory Results - last 48 hr 02/16/25 13:49 WBC 9.8 RBC 4.71 Hgb 14.3 Hct 40.1 L MCV 85.1 MCH 30.4 MCHC 35.7 RDW 11.3 Plt Count 282 MPV 10.6 Immature Gran % (Auto) 0.3 Neut % (Auto) 79.3 H Lymph % (Auto) 11.2 L [place] % (Auto) 8.1 Eos % (Auto) 0.7 Baso % (Auto) 0.4 Lymph # (Auto) 1.1 L [place] # (Auto) 0.8 Eos # (Auto) 0.1 Baso # (Auto) 0.0 Abs Immat Gran (auto) 0.03 Absolute Neuts (auto) 7.8 Absolute Nucleated RBC 0.000 Nucleated RBC % (auto) 0.0 Sodium 138 Potassium 4.2 Chloride 105 Carbon Dioxide 25 Anion Gap 12 BUN 17 H Creatinine 1.00 Estim Creat Clear Calc 102.5 Estimated GFR > 60 Random Glucose 99 Calcium 10.2 Magnesium 2.1 Total Bilirubin 1.7 H AST 42 H ALT 27 Alkaline Phosphatase 60 Total Protein 8.3 H Albumin 5.6 H Salicylates < 5.0 L Acetaminophen < 3 Ethyl Alcohol 10 Meds/Allergies Allergies Allergies Allergy/AdvReac Type Severity Reaction Status Date / Time No Known Allergies Allergy Verified 02/16/25 16:22 Mental Status Exam Mental Status Exam Narrative: Pt is alert and oriented; behavior is cooperative, friendly and calm; patient is not in distress; dressed in casual attire with unkempt hair but adequate hygiene; mood is described as good and affect congruent; eye contact appropriate; Speech is normal rate, volume and prosody and not pressured; no psychomotor agitation/retardation present; thought process is organized and goal directed; Thought content is on tx; otherwise pertinent to relevant topics and without any delusional content, paranoid ideations or grandiosity; denies any SI/HI. Denies AVH and there is no evidence of perceptual disturbance. Patients insight and judgment appear intact. Assessment & Plan Assessment & Plan (1) Bipolar I disorder: Status: Acute Code(s): F31.9 - Bipolar disorder, unspecified (2) Cognitive disorder: Status: Acute Code(s): F09 - Unspecified mental disorder due to known physiological condition Statement Statement: I have reviewed the history and physical and performed a pertinent examination on my patient. No changes have occurred unless specified. If the History and Physical was not performed prior to admission, the Hospitalist's service will be consulted for completing the admission physical. Time Spent With Patient Time: Total time managing care of this patient today ____ minutes.
--- NOTE | 2025-02-18 12:04 | PM.PSYDC ---
DS: Providers Provider Date of Service: 02/18/25 Date of admission: 02/17/25 13:14 Date of discharge: 02/18/25 Primary care physician: Emely Alvarado DO Attending physician on admission: Steve Ramirez Attending physician on discharge: Steve Ramirez DS: Diagnosis Discharge Diagnosis (1) Bipolar I disorder: Status: Acute (2) Cognitive disorder: Status: Acute DS: Medications Discharge Medications Home Medications: Previous Rx's ?Medication ?Instructions ?Recorded olanzapine 5 mg tablet See Rx Instructions .Route 02/18/25 .COMPLEX 30 days #60 tabs Data Data Completed and Pending Completed studies during hospitalization [Text1]: 02/16/25 13:49 WBC 9.8 RBC 4.71 Hgb 14.3 Hct 40.1 L MCV 85.1 MCH 30.4 MCHC 35.7 RDW 11.3 Plt Count 282 MPV 10.6 Immature Gran % (Auto) 0.3 Neut % (Auto) 79.3 H Lymph % (Auto) 11.2 L [place] % (Auto) 8.1 Eos % (Auto) 0.7 Baso % (Auto) 0.4 Lymph # (Auto) 1.1 L [place] # (Auto) 0.8 Eos # (Auto) 0.1 Baso # (Auto) 0.0 Abs Immat Gran (auto) 0.03 Absolute Neuts (auto) 7.8 Absolute Nucleated RBC 0.000 Nucleated RBC % (auto) 0.0 Sodium 138 Potassium 4.2 Chloride 105 Carbon Dioxide 25 Anion Gap 12 BUN 17 H Creatinine 1.00 Estim Creat Clear Calc 102.5 Estimated GFR > 60 Random Glucose 99 Calcium 10.2 Magnesium 2.1 Total Bilirubin 1.7 H AST 42 H ALT 27 Alkaline Phosphatase 60 Total Protein 8.3 H Albumin 5.6 H Salicylates < 5.0 L Acetaminophen < 3 Ethyl Alcohol 10 DS: Summary Time Spent with Patient Time attestation: Total time managing care of this patient today ____ minutes. Discharge Plan Discharge Anticipated Discharge Date/Time: 02/18/25 12:02 Patient Disposition: Home, Self-Care Discharge Diagnosis: bipolar I disorder Referrals: Crisis Information [Other] - 1 Week Insurance [Other] - [facility]Other[facility] - 1 Week [facility] ([place] [Other] - 02/19/25 10:00 am Emely Alvarado DO [Primary Care Provider, Pediatrics] - 1 Week Discharge Medications: Changed olanzapine 5 mg tablet See Rx Instructions .ROUTE .COMPLEX 30 Days Qty: 60 1RF Rx Instructions: take 1 tab at bedtime; may take additional tab daily as needed for agitation/insomnia Discharge Orders: Discharge Order (Routine); Ordered 02/18/25 Ordered By: Steve Ramirez Diet: Regular diet Activity on Discharge: As tolerated Stand Alone Forms: Patient Portal Discharge page Print Language: [place] Care Plan Goals: Maintain mood and safe behaviors Take medications as prescribed Practice coping skills Continue with outpatient providers and reach out to them as needed Health Concerns: Mood stability and behaviors Plan of Treatment: Follow up with your PCP, psychiatric provider and other outpatient providers regarding above concerns Take medications as prescribed Assessment: Risk assessment at time of discharge:? Patient was interviewed prior to discharge and found to be fully oriented and without any SI or HI. Patient has improved insight and judgment and wants to continue treatment. Patient is not in imminent risk of harm to self or others and has a safety plan that includes presenting to the closest ER or calling 911 if feeling unsafe.? Patient has been observed closely by nursing and unit staff throughout admission; patient has not engaged in any behaviors that suggest dangerousness to self or others and has demonstrated appropriate behaviors and impulse control
== END 2025-02-18 12:35 | disposition home or self-care (01) | DRG 885 ==
LOC: HO.ED 02-17 12:59 → HO.PM5 02-17 13:15
PROVIDERS: Admitting Provider Psychiatry & Neurology Psychiatry; Emergency Provider Emergency Medicine; PCP Pediatrics; Visit Provider Psychiatry & Neurology Psychiatry
DX: F31.9 Bipolar disorder, unspecified (principal); F79 Unspecified intellectual disabilities
CPT/HCPCS: 36415; 80053; 80143; 80179; 80307; 83735; 85025; 99285

== ENCOUNTER → 2025-02-17 13:14 | Outpatient (BNV) | payer MEDICAID, SELFPAY | PROVIDERS: Admitting Provider Psychiatry & Neurology Psychiatry; Emergency Provider Emergency Medicine; PCP Pediatrics; Visit Provider Nurse Practitioner Family | DX: F23 Brief psychotic disorder (principal) | CPT/HCPCS: 99221 ==

== ENCOUNTER → 2025-02-17 13:14 | Outpatient (BNV) | payer OTHER, SELFPAY | PROVIDERS: Admitting Provider Psychiatry & Neurology Psychiatry; Emergency Provider Emergency Medicine; PCP Pediatrics; Visit Provider Psychiatry & Neurology Psychiatry | DX: F31.9 Bipolar disorder, unspecified (principal); F09 Unspecified mental disorder due to known physiological condition | CPT/HCPCS: 99233; 99499 ==